=== PATIENT | male | born 1985 | race Caucasian/White ===

== ENCOUNTER 2019-02-02 20:22 | Emergency (ER) | payer BC ==
[~2019-02-02] VITALS: Ht 182.9 cm; Wt 136.4 kg
[2019-02-02 21:31] VITALS: BP 145/95
== END 2019-02-02 21:37 | disposition home or self-care (01) ==
LOC: ER 20:23
DX: J22 Unspecified acute lower respiratory infection (principal)
CPT/HCPCS: 71046; 99283